=== PATIENT | female | born 1955 | race Caucasian/White ===

== ENCOUNTER 2017-09-10 17:33 | Emergency (ER) | payer OTHER ==
[2017-09-10 18:24] LABS: ADD MAN DIFF? NO
[2017-09-10 18:33] LABS: WHITE BLOOD COUNT 4.4 10^3/ul (4.8-10.8)
[2017-09-10 18:33] LABS: ABNORMAL IP MESSAGE 1; BASOPHILS % 0.9 % (0.0-2.0); EOSINOPHILS # 0.2 10^3/ul (0.0-0.5); EOSINOPHILS % 4.8 % (0.0-7.0); HEMATOCRIT 35.1 % (37.0-47.0); HEMOGLOBIN 11.9 g/dl (12.0-16.0); LYMPHOCYTES # 1.5 10^3/ul (0.8-2.9); LYMPHOCYTES % 35.2 % (15.0-51.0); MEAN CORPUSCULAR HEMOGLOBIN 31.6 pg (29.0-33.0); MEAN CORPUSCULAR HGB CONC 33.9 g/dl (32.0-37.0); MEAN CORPUSCULAR VOLUME 93.1 fl (82.0-101.0); MEAN PLATELET VOLUME 11.1 fl (7.4-10.4); MONOCYTE # 0.5 10^3/ul (0.3-0.9); MONOCYTES % 10.3 % (0.0-11.0); NEUTROPHIL # 2.1 10^3/ul (1.6-7.5); NEUTROPHILS % 48.6 % (39.0-77.0); PLATELET COUNT 79 10^3/UL (140-415); RED BLOOD COUNT 3.77 10^6/ul (4.20-5.40); RED CELL DISTRIBUTION WIDTH 13.2 % (11.5-14.5)
[2017-09-10 18:34] LABS: POSITIVE DIFF @See below
[2017-09-10 18:50] LABS: AMMONIA 43 umol/l (9-30)
[2017-09-10 18:56] LABS: ALANINE AMINOTRANSFERASE 627 IU/L (13-69); ALBUMIN 3.5 g/dl (3.3-4.9); ALBUMIN/GLOBULIN RATIO 1.06; ALKALINE PHOSPHATASE 99 IU/L (42-121); ANION GAP 15 (8-16); ASPARTATE AMINO TRANSFERASE 677 IU/L (15-46); BILIRUBIN,INDIRECT 0.8 mg/dl (0-1.1); BILIRUBIN,TOTAL 0.8 mg/dl (0.2-1.3); BLOOD UREA NITROGEN 15 mg/dl (7-20); CALCIUM 8.9 mg/dl (8.4-10.2); CARBON DIOXIDE 23 mmol/L (21-31); CHLORIDE 110 mmol/L (97-110); CREATININE 0.47 mg/dl (0.44-1.00); GLUCOSE 98 mg/dl (70-220); LIPASE 182 U/L (23-300); POTASSIUM 3.8 mmol/L (3.5-5.1); SODIUM 144 mmol/L (135-144); TOTAL PROTEIN 6.8 g/dl (6.1-8.1)
[2017-09-10 19:03] LABS: TROPONIN-I 0.021 ng/ml (0.000-0.120)
[2017-09-10] MEDS: LACTULOSE 30ML CUP PO (19:49)
== END 2017-09-10 20:46 | disposition short-term general hospital (02) ==
LOC: E/R 17:33
DX: K72.90 Hepatic failure, unspecified without coma (principal); R10.9 Unspecified abdominal pain
CPT/HCPCS: 36415; 76705; 80053; 82140; 83690; 84484; 85025; 93005; 99285-25

== ENCOUNTER 2017-09-24 12:42 | Day surgery (SDC) | payer OTHER | END 2017-09-24 19:43 | disposition home or self-care (01) | LOC: GIL 12:42 | DX: K29.50 Unspecified chronic gastritis without bleeding (principal); I85.00 Esophageal varices without bleeding | CPT/HCPCS: 43239; 88305; 88312 ==